=== PATIENT | female | born 1970 | race African-American/Black ===

== ENCOUNTER 2017-07-16 15:02 | Emergency (ER) | payer OTHER ==
[~2017-07-16] VITALS: Ht 160 cm; Wt 56.7 kg
[2017-07-16] MEDS ORDERED: ROBAXIN-750750 MG PO (15:15)
[2017-07-16] MEDS ORDERED: IBUPROFEN600 MG ORAL (15:15)
[2017-07-16 15:26] VITALS: BP 123/69
[2017-07-16 15:29] VITALS: BP 123/69
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
== END 2017-07-16 15:30 | disposition home or self-care (01) ==
LOC: EMR 15:14
DX: M54.2 Cervicalgia (principal); T14.8 Other injury of unspecified body region; V43.52XA Car driver injured in collision with other type car in traffic accident, initial encounter; Y93.9 Activity, unspecified; Y92.410 Unspecified street and highway as the place of occurrence of the external cause; M54.9 Dorsalgia, unspecified
CPT/HCPCS: 99284